=== PATIENT | female | born 1990 | race Caucasian/White ===

== ENCOUNTER 2022-02-05 10:18 | Emergency (ER) | payer OTHER ==
[2022-02-05 13:25] LABS: #Eosinphils 0.1 10x3/uL (0.0-0.5); #Monocytes 0.4 10x3/uL (0.0-1.1); %Basophils 0.4 % (0.0-2.0); %Eosinophils 0.9 % (0.0-6.0); %Lymphocytes 26.1 % (18.0-47.0); %Monocytes 4.8 % (0.0-10.0); %Neutrophils 67.5 % (40.0-75.0); Hemoglobin 14.1 g/dL (12.0-15.5); Mean Corpuscular HGB CONC 31.6 g/dL (32.0-36.0); Mean Corpuscular Hemoglobin 26.3 pg (27.0-33.0); Mean Corpuscular Volume 83.1 fl (81.6-98.3); Mean Platelet Volume 10.5 fl (7.4-10.4); Platelet Count 186 10x3/uL (150-450); Red Blood Cell (RBC) Count 5.37 10x6/uL (3.90-5.03); White Blood Cell (WBC) Count 7.5 10x3/uL (3.5-10.5)
[2022-02-05 13:37] LABS: ALT (SGPT) 25 U/L (8-55); AST (SGOT) 20 U/L (5-34); Albumin 4.9 g/dL (3.5-5.0); Alkaline Phosphatase 47 U/L (40-110); Anion Gap 15 mmol/L (10-20); BUN (Urea Nitrogen) 10 mg/dL (7.0-18.7); Bilirubin, Total 0.7 mg/dL (0.2-1.2); Calc. Creatinine Clearance 0 mL/min (70-130); Carbon Dioxide 21 mmol/L (22-29); Chloride 107 mmol/L (98-107); Estimated GFR 112; Globulin 3.6 g/dL (2.4-3.5); Glucose 90 mg/dL (70-105); Protein, Total 8.5 g/dL (6.0-8.3); Sodium 139 mmol/L (136-145)
== END 2022-02-05 14:05 | disposition home or self-care (01) ==
LOC: CSHERS 10:18
DX: O03.9 Complete or unspecified spontaneous abortion without complication (principal)
CPT/HCPCS: 36415; 76856; 80053; 84702; 85025; 86900; 86901

== ENCOUNTER 2022-06-23 12:09 | Emergency (ER) | payer OTHER ==
[2022-06-23 14:40] LABS: SARS-CoV-2 NAA Rapid Test Not Detected (NotDetected)
== END 2022-06-23 15:31 | disposition home or self-care (01) ==
LOC: CSHERS 12:09
DX: J06.9 Acute upper respiratory infection, unspecified (principal); Z20.822 Contact with and (suspected) exposure to COVID-19
CPT/HCPCS: 87081; 87430; 99283

== ENCOUNTER 2022-09-23 23:09 | Day surgery (SDC) | payer OTHER ==
[2022-09-23 23:43] VITALS: BMI 38.7
[2022-09-24] MEDS ORDERED: hydrALAZINE 20 MG/ML VIAL SLOW IVP PRN (01:06)
== END 2022-09-24 02:16 | disposition home or self-care (01) ==
LOC: CSHLD/OP 23:09
PROVIDERS: ATTEND Family Medicine
DX: O36.8120 Decreased fetal movements, second trimester, not applicable or unspecified (principal); Z87.59 Personal history of other complications of pregnancy, childbirth and the puerperium; Z79.82 Long term (current) use of aspirin; Z79.899 Other long term (current) drug therapy; Z88.2 Allergy status to sulfonamides; Z3A.28 28 weeks gestation of pregnancy
CPT/HCPCS: 99282

== ENCOUNTER 2024-06-30 04:51 | Inpatient (IN) | payer OTHER ==
[2024-06-30 05:12] VITALS: BMI 37.0
[2024-06-30] MEDS ORDERED: Ondansetron PF 4 MG/2 ML Vial IVP PRN ×6 (05:43→11:21)
[2024-06-30] MEDS ORDERED: Bicitra 30 ML UDCUP PO PRN (05:43)
[2024-06-30] MEDS ORDERED: Oxytocin 30 units/NS 500 ML 500 ML IV SCH (05:43)
[2024-06-30] MEDS ORDERED: Carboprost 250 MCG/ML AMP IM PRN (05:43)
[2024-06-30] MEDS ORDERED: Misoprostol 200 MCG TAB PR PRN (05:43)
[2024-06-30] MEDS ORDERED: hydrALAZINE 20 MG/ML VIAL SLOW IVP PRN ×2 (05:43→11:21)
[2024-06-30] MEDS ORDERED: Tranexamic Acid 1,000 MG/10 ML VIAL IVP PRN (05:43)
[2024-06-30] MEDS ORDERED: Promethazine HCl 25 MG/ML VIAL IM PRN ×4 (05:43→11:21)
[2024-06-30] MEDS ORDERED: Diphenoxylate HCl/Atropine Tablet PO PRN (05:43)
[2024-06-30 05:48] LABS: Hematocrit 28.2 % (34.9-44.5); Hemoglobin 8.2 g/dL (12.0-15.5); Mean Corpuscular HGB CONC 29.1 g/dL (32.0-36.0); Mean Corpuscular Hemoglobin 20.8 pg (27.0-33.0); Mean Corpuscular Volume 71.6 fL (81.6-98.3); Mean Platelet Volume 9.8 fL (7.4-10.4); Platelet Count 125 10x3/uL (150-450); RBC Distribution Width 25.4 % (11.5-14.5); Red Blood Cell (RBC) Count 3.94 10x6/uL (3.90-5.03); White Blood Cell (WBC) Count 6.35 10x3/uL (3.5-10.5)
[2024-06-30 06:21] LABS: HBsAg Index 0.25 S/CO (0-0.99); Hep B Surf Ag - L&D Non-Reactive S/CO (NonReactive)
[2024-06-30 06:22] LABS: Syphilis Antibody Nonreactive (Nonreactive)
[2024-06-30] MEDS: Clindamycin/D5W 900 MG in Premix 1 BAG IVPB SCH (06:45)
[2024-06-30] MEDS: Famotidine/PF 20 mg/2ml Vial SLOW IVP PRN (07:15)
[2024-06-30] MEDS: Gentamicin Sulfate 80 MG in Premix 1 BAG IVPB SCH (07:23)
[2024-06-30] MEDS: Lactated Ringer's 1,000 ML IV SCH (08:50)
[2024-06-30] MEDS: Morphine PF 10 MG/10 ML VIAL ONE (08:51)
[2024-06-30] MEDS: Oxytocin 10 UNITS/ML VIAL ONE (08:51)
[2024-06-30] MEDS: Dexmedetomidine 200 MCG/2 ML VIAL ONE (08:51)
[2024-06-30] MEDS: Gentamicin Sulfate 120 MG in Premix 1 BAG IVPB SCH (08:51)
[2024-06-30] MEDS: Ondansetron PF 4 MG/2 ML Vial ONE (08:51)
[2024-06-30] MEDS: PHENYLEPHRINE-NS 100 MCG/ML 10 ML SYRINGE ONE (08:52)
[2024-06-30] MEDS: Midazolam HCl 2 mg/2 ml Vial ONE (08:52)
[2024-06-30] MEDS ORDERED: fentaNYL 50 mcg/mL 1 mL Vial SLOW IVP PRN ×2 (08:53→10:03)
[2024-06-30] MEDS ORDERED: Moisturizing Cream (Eucerin) 113 GM JAR TOP PRN ×2 (08:53→10:03)
[2024-06-30] MEDS ORDERED: Meperidine HCl/PF 25 MG (1 mL) VIAL SLOW IVP PRN ×2 (08:53→10:03)
[2024-06-30] MEDS ORDERED: Ketorolac Tromethamine 30 MG (1 mL) VIAL IVP PRN ×2 (08:53→10:03)
[2024-06-30] MEDS ORDERED: Naloxone HCl 0.4 mg/ml Vial IVP PRN ×4 (08:53→10:03)
[2024-06-30] MEDS ORDERED: Naloxone HCl 0.4 mg/ml Vial IV PRN ×2 (08:53→10:03)
[2024-06-30] MEDS ORDERED: diphenhydrAMINE 50 MG/ML VIAL IVP PRN ×2 (08:53→10:03)
[2024-06-30] MEDS ORDERED: Communication Order-Pharmacy FS SCH ×2 (09:00→10:15)
[2024-06-30] MEDS ORDERED: HYDROmorphone 0.5 MG/0.5 ML SYRINGE SLOW IVP PRN (10:03)
[2024-06-30] MEDS: Ketorolac Tromethamine 30 MG (1 mL) VIAL IVP SCH ×2 (11:15→16:18)
[2024-06-30] MEDS ORDERED: Bisacodyl 10 MG SUPP PR PRN (11:21)
[2024-06-30] MEDS ORDERED: Lanolin Ointment 7 GM TUBE TOP PRN (11:21)
[2024-06-30] MEDS ORDERED: diphenhydrAMINE 25 MG CAP PO PRN (11:21)
[2024-06-30] MEDS: Boostrix 0.5 ML (Tdap) VIAL (>/=7 yrs of age) IM ONE (11:54)
[2024-06-30] MEDS: Docusate 100 MG CAP PO SCH ×2 (11:55→22:03)
[2024-06-30] MEDS: Ferrous Sulfate 325 MG TAB PO SCH ×2 (11:56→22:03)
[2024-06-30] MEDS: Prenatal Vitamin 1 TAB PO SCH (11:56)
[2024-06-30] MEDS ORDERED: Meperidine HCl/PF 25 MG (1 mL) VIAL IM PRN (22:15)
[2024-06-30] MEDS ORDERED: HYDROcodone/Acetaminophen 5/325 mg Tablet PO PRN (22:15)
[2024-07-01 04:39] LABS: Hematocrit 28.6 % (34.9-44.5); Hemoglobin 8.4 g/dL (12.0-15.5); Mean Corpuscular HGB CONC 29.4 g/dL (32.0-36.0); Mean Corpuscular Hemoglobin 21.8 pg (27.0-33.0); Mean Corpuscular Volume 74.3 fL (81.6-98.3); Mean Platelet Volume 10.2 fL (7.4-10.4); Platelet Count 114 10x3/uL (150-450); RBC Distribution Width 25.9 % (11.5-14.5); Red Blood Cell (RBC) Count 3.85 10x6/uL (3.90-5.03); White Blood Cell (WBC) Count 9.71 10x3/uL (3.5-10.5)
[2024-07-01] MEDS: HYDROcodone/Acetaminophen 5/325 mg Tablet PO PRN (04:59)
[2024-07-01] MEDS: Prenatal Vitamin 1 TAB PO SCH (09:03)
[2024-07-01] MEDS: Ibuprofen 800 MG TAB PO SCH (14:02)
[2024-07-01] MEDS: Simethicone Chewable 80 MG TAB PO PRN (21:08)
[2024-07-03 08:08] VITALS: BP 117/80; TEMP 98.1
== END 2024-07-03 17:19 | disposition home or self-care (01) | DRG 788 ==
LOC: CSHLD 04:51 → CSHPP 11:26
PROVIDERS: ADMIT Family Medicine; ATTEND Family Medicine
PROC: 10D00Z1 Extraction of Products of Conception, Low, Open Approach (ICD-10-PCS; principal; 2024-06-30)
PROC: 30233N1 Transfusion of Nonautologous Red Blood Cells into Peripheral Vein, Percutaneous Approach (ICD-10-PCS; 2024-06-30)
DX: O34.211 Maternal care for low transverse scar from previous cesarean delivery (principal); O99.02 Anemia complicating childbirth; O99.214 Obesity complicating childbirth; D50.9 Iron deficiency anemia, unspecified; O99.344 Other mental disorders complicating childbirth; F32.A Depression, unspecified; Z3A.39 39 weeks gestation of pregnancy; Z37.0 Single live birth; Z88.0 Allergy status to penicillin; Z88.2 Allergy status to sulfonamides; Z79.82 Long term (current) use of aspirin; Z79.899 Other long term (current) drug therapy
CPT/HCPCS: 36415; 36430; 51702; 85027; 86780; 86850; 86900; 86901; 87340; C1889; J1885; J2250; J2274; J2405; J2590; J3490; P9016